=== PATIENT | male | born 1980 | race Two or more races ===

== ENCOUNTER 2017-03-10 15:32 | Emergency (ER) | payer OTHER ==
[~2017-03-10] VITALS: Ht 165.1 cm; Wt 72.6 kg
[2017-03-10 15:43] VITALS: BP 138/78
[2017-03-10] MEDS ORDERED: TDAP [DIPH/PERTUSSIS/TET] 0.5 ML VIAL IM ONE ×2 (15:51→16:00)
--- NOTE | 2017-03-10 16:05 | NUR ---
medically cleared for booking. d/c to [facility] in stable condition.
== END 2017-03-10 16:06 ==
LOC: ER 15:39
DX: S51.012A Laceration without foreign body of left elbow, initial encounter (principal); Z23 Encounter for immunization; Y04.0XXA Assault by unarmed brawl or fight, initial encounter; Y93.89 Activity, other specified; Y92.89 Other specified places as the place of occurrence of the external cause; Y99.8 Other external cause status
CPT/HCPCS: 90715; A4606; A6402; Z7610